=== PATIENT | male | born 2000 | race Caucasian/White ===

== ENCOUNTER 2020-11-17 04:04 | Emergency (ER) | payer OTHER ==
[~2020-11-17] VITALS: Ht 167.6 cm; Wt 81.8 kg
[2020-11-17] MEDS ORDERED: NORCO 325 MG-51 TAB PO (06:03)
[2020-11-17] MEDS ORDERED: CEPHALEXIN500 M1 PO (06:03)
[2020-11-17 06:10] VITALS: BP 127/75; PULSE 92
== END 2020-11-17 06:11 | disposition home or self-care (01) ==
LOC: COL.ER 04:04
DX: S01.01XA Laceration without foreign body of scalp, initial encounter (principal); S51.831A Puncture wound without foreign body of right forearm, initial encounter; S80.212A Abrasion, left knee, initial encounter; S80.211A Abrasion, right knee, initial encounter; S90.812A Abrasion, left foot, initial encounter; S90.811A Abrasion, right foot, initial encounter; V03.00XA Pedestrian on foot injured in collision with car, pick-up truck or van in nontraffic accident, initial encounter
CPT/HCPCS: J1885